=== PATIENT | male | born 1960 | race Two or more races ===

== ENCOUNTER 2024-03-18 23:38 | Inpatient (IN) | payer MEDICAID, OTHER ==
[~2024-03-18] VITALS: Ht 170.2 cm; Wt 72.6 kg
[2024-03-19] VITALS: PULSE 106
[2024-03-19] MEDS: LORazepam 2MG/ML-1ML VIAL IV ONE ×2 (01:15→05:46)
[2024-03-19 02:26] LABS: Hematocrit 31.7 % (41.0-53.0); Mean Corpuscular Volume 81.3 fL (80.0-100.0); Red Blood Cells 3.89 10^6/uL (4.5-5.90)
[2024-03-19 02:35] LABS: Basophils # (auto) 0 10 ^3/uL (0-0.2); Basophils % (auto) 0.3 % (0.0-2.0); Eosinophils # (auto) 0.1 10 ^3/uL (0-0.8); Eosinophils % (auto) 1.5 % (0.0-7.0); Hemoglobin 10.1 g/dL (13.5-17.5); Lymphocytes % (auto) 16.9 % (10.0-50.0); Mean Corpuscular Hemoglobin 25.8 pg (28.0-32.0); Mean Corpuscular Hgb Conc. 31.8 g/dL (32.0-36.0); Monocytes # (auto) 0.7 10 ^3/uL (0-1.3); Monocytes % (auto) 11.1 % (0.0-12.0); Neutrophils # (auto) 4.2 10 ^3/uL (1.6-8.6); Neutrophils % (auto) 70.2 % (37.0-80.0); Nucleated Red Blood Cells % 0.1 %; Platelet Count (auto) 100 10^3/uL (140-450); Red Cell Distribution Width 17.2 % (11.8-14.3)
[2024-03-19 02:49] LABS: Alanine Aminotransferase 16 U/L (7-40); Albumin 2.8 g/dL (3.2-4.8); Alkaline Phosphatase 119 U/L (46-116); Anion Gap 9 (5-15); Aspartate Aminotransferase 29 U/L (13-40); BUN/Creatinine Ratio 7.8 (10.0-20.0); Bilirubin, Total 2.5 mg/dL (0.2-1.0); Blood Urea Nitrogen 6 mg/dL (9-23); Calcium 9.1 mg/dL (8.7-10.4); Carbon Dioxide 20 mmol/L (20-30); Chloride 105 mmol/L (98-107); Glucose 253 mg/dL (74-106); Potassium 4.9 mmol/L (3.5-5.1); Sodium 134 mmol/L (136-145); Total Protein 8.1 g/dL (5.7-8.2)
[2024-03-19 03:12] LABS: Blood Alcohol < 3.0 mg/dL (<10)
[2024-03-19 04:23] LABS: Urine Bacteria FEW /hpf (None Seen); Urine Blood TRACE /uL (Negative); Urine Budding Yeast FEW /hpf (None Seen); Urine Clarity Clear (Clear); Urine Color Yellow (Yellow); Urine Protein, UAD TRACE (Negative); Urine Specific Gravity 1.024 (1.001-1.035); Urine Urobilinogen 3 mg/dL (Negative); Urine WBC 1 /hpf (0 - 3); Urine pH 6.5 (5.0-9.0)
[2024-03-19 04:29] LABS: Amphetamine Screen, Urine Neg (NEGATIVE); Barbiturate Scree,Urine Neg (NEGATIVE); Benzodiazephine Screen, Urine Neg (NEGATIVE); Cocaine Screen, Urine Neg (NEGATIVE); Opiate Scree,Urine Neg (NEGATIVE); Phencyclidine Screen, Urine Neg (NEGATIVE)
[2024-03-19 04:30] LABS: Cannabinoid Screen, Urine Neg (NEGATIVE)
[2024-03-19 07:50] VITALS: PULSE 90; RESP 16; O2SAT 98
[2024-03-19] MEDS ORDERED: NITROGLYCERIN 0.4 MG SL TAB SL PRN (09:00)
[2024-03-19] MEDS ORDERED: ACETAMINOPHEN 325 MG TAB PO PRN (09:00)
[2024-03-19] MEDS: SODIUM CHLORIDE 0.9% 2,000 ML IV ONE (09:00)
[2024-03-19] MEDS ORDERED: MORPHINE SULFATE INJ 2 MG/ml SYRG IV PRN (09:00)
[2024-03-19] MEDS ORDERED: LORazepam 2MG/ML-1ML VIAL IV PRN (09:00)
[2024-03-19] MEDS: LACTULOSE 20Gm/30ML SOLN PO ONE (09:50)
[2024-03-19] MEDS: ENOXAPARIN SOD 40 MG/0.4 ML SYRINGE SC SCH (10:00)
[2024-03-19] MEDS: LACTULOSE 20Gm/30ML SOLN PO SCH (10:00)
[2024-03-19] MEDS: hydrALAZINE HCL 20 MG/ML VL IV PRN (10:42)
[2024-03-19] MEDS: SODIUM CHLORIDE 0.9% 1,000 ML IV SCH (11:00)
[2024-03-19] MEDS ORDERED: FOLIC ACID 1 MG, MAGNESIUM SULF SDV 50% 8 MEQ, MULTIPLE VITAMIN 10 ML, THIAMINE INJ 100... INJ SCH (18:00)
[2024-03-19 19:20] VITALS: PULSE 99; RESP 17; O2SAT 96; O2SAT 99
[2024-03-19] MEDS: FOLIC ACID 1 MG, MAGNESIUM SULF SDV 50% 8 MEQ, MULTIPLE VITAMIN 10 ML, THIAMINE INJ 100... INJ SCH (20:45)
[2024-03-20 07:03] LABS: Basophils # (auto) 0 10 ^3/uL (0-0.2); Basophils % (auto) 0.2 % (0.0-2.0); Eosinophils # (auto) 0.1 10 ^3/uL (0-0.8); Hematocrit 30.5 % (41.0-53.0); Hemoglobin 9.7 g/dL (13.5-17.5); Mean Corpuscular Hgb Conc. 31.9 g/dL (32.0-36.0); Neutrophils # (auto) 4.4 10 ^3/uL (1.6-8.6)
[2024-03-20 07:05] LABS: Eosinophils % (auto) 1.4 % (0.0-7.0); Lymphocytes # (auto) 1.3 10 ^3/uL (0.4-5.4); Lymphocytes % (auto) 18.5 % (10.0-50.0); Mean Corpuscular Hemoglobin 25.7 pg (28.0-32.0); Mean Corpuscular Volume 80.6 fL (80.0-100.0); Monocytes % (auto) 15.2 % (0.0-12.0); Neutrophils % (auto) 64.7 % (37.0-80.0); Platelet Count (auto) 100 10^3/uL (140-450); Red Blood Cells 3.79 10^6/uL (4.5-5.90); Red Cell Distribution Width 17.2 % (11.8-14.3); White Blood Cell 6.8 10^3/uL (4.4-10.8)
[2024-03-20 07:07] LABS: Alanine Aminotransferase 15 U/L (7-40); Albumin 2.8 g/dL (3.2-4.8); Alkaline Phosphatase 113 U/L (46-116); Anion Gap 15 (5-15); Aspartate Aminotransferase 29 U/L (13-40); Bilirubin, Total 2.5 mg/dL (0.2-1.0); Calcium 8.5 mg/dL (8.5-10.1); Carbon Dioxide 15 mmol/L (20-30); Chloride 105 mmol/L (98-107); Glucose 229 mg/dL (74-106); Potassium 3.5 mmol/L (3.5-5.1); Sodium 135 mmol/L (136-145); Total Protein 7.5 g/dL (5.7-8.2)
[2024-03-20 07:08] LABS: BUN/Creatinine Ratio 8.3 (10.0-20.0); Blood Urea Nitrogen < 5 mg/dL (9-23)
[2024-03-20 08:45] VITALS: PULSE 90; RESP 13; O2SAT 98
[2024-03-20 10:41] LABS: Hepatitis B Surface Antigen Negative (Negative)
[2024-03-20 11:01] LABS: Hepatitis A Ab IgM Negative
[2024-03-20 11:03] LABS: Hepatitis B Core IgM Negative; Hepatitis C Antibody Negative (Negative)
[2024-03-20] MEDS ORDERED: DEXTROSE (50%) 50ML SYRG IV PRN (13:45)
[2024-03-20] MEDS: amLODIPine BESYLATE 5 MG TAB PO ONE (14:10)
[2024-03-20 16:43] LABS: Erythrocyte Sedimentation Rate 48 mm/hr (0-20)
[2024-03-20] MEDS: ACCU-CHEK COMFORT CURVE STRIP VI SCH (17:00)
[2024-03-20] MEDS: InsuLIN REG 1unit/0.01ml Soln (100units/ml) SC SCH (17:56)
[2024-03-20 19:30] VITALS: PULSE 92; RESP 10; O2SAT 96
[2024-03-20 21:35] VITALS: PULSE 96; RESP 16; O2SAT 95
[2024-03-21] VITALS (8 sets, daily range): BP systolic 132–151; BP diastolic 64–82; PULSE 78–91; RESP 16–20; TEMP 97.9–99.5; O2SAT 95–97
[2024-03-21 05:01] LABS: Basophils # (auto) 0 10 ^3/uL (0-0.2); Basophils % (auto) 0.4 % (0.0-2.0); Eosinophils # (auto) 0.1 10 ^3/uL (0-0.8); Hematocrit 32.4 % (41.0-53.0); Hemoglobin 9.9 g/dL (13.5-17.5); Lymphocytes # (auto) 1.3 10 ^3/uL (0.4-5.4); Lymphocytes % (auto) 18.1 % (10.0-50.0); Mean Corpuscular Hemoglobin 25.3 pg (28.0-32.0); Mean Corpuscular Hgb Conc. 30.4 g/dL (32.0-36.0); Mean Corpuscular Volume 83.2 fL (80.0-100.0); Monocytes # (auto) 1.3 10 ^3/uL (0-1.3); Neutrophils # (auto) 4.6 10 ^3/uL (1.6-8.6); Neutrophils % (auto) 61.4 % (37.0-80.0); Nucleated Red Blood Cells % 0.1 %; Platelet Count (auto) 104 10^3/uL (140-450); Red Blood Cells 3.89 10^6/uL (4.5-5.90); Red Cell Distribution Width 17.9 % (11.8-14.3); White Blood Cell 7.5 10^3/uL (4.4-10.8)
[2024-03-21 05:02] LABS: Monocytes % (auto) 18.1 % (0.0-12.0)
[2024-03-21 05:17] LABS: Alanine Aminotransferase 16 U/L (7-40); Albumin 2.7 g/dL (3.2-4.8); Alkaline Phosphatase 101 U/L (46-116); Anion Gap 12 (5-15); Aspartate Aminotransferase 35 U/L (13-40); BUN/Creatinine Ratio 8.1 (10.0-20.0); Bilirubin, Total 2.3 mg/dL (0.2-1.0); Blood Urea Nitrogen 5 mg/dL (9-23); Calcium 8.5 mg/dL (8.7-10.4); Carbon Dioxide 15 mmol/L (20-30); Chloride 108 mmol/L (98-107); Glucose 199 mg/dL (74-106); Potassium 3.5 mmol/L (3.5-5.1); Sodium 135 mmol/L (136-145); Total Protein 7.5 g/dL (5.7-8.2)
[2024-03-21] MEDS: amLODIPine BESYLATE 5 MG TAB PO SCH (10:19)
[2024-03-21] MEDS: cefTRIAXone 1GM/50ML D5W 50 ML IV SCH (15:01)
[2024-03-21] MEDS: SODIUM BICARB 50mEq/50ml Vial 50 ML in SOD CHL 0.45% 1,000 ML IV ONE (18:29)
[2024-03-21] MEDS: metFORMIN HYDROCHLORIDE 850 MG TAB PO SCH (18:46)
[2024-03-22 01:00] VITALS: BP 138/53; PULSE 81; RESP 18; TEMP 97.9; O2SAT 97
[2024-03-22 05:00] VITALS: BP 137/60; PULSE 82; RESP 18; TEMP 99; O2SAT 97
[2024-03-22 06:41] LABS: Anion Gap 9 (5-15); Carbon Dioxide 19 mmol/L (20-30); Chloride 108 mmol/L (98-107); Sodium 136 mmol/L (136-145)
[2024-03-22 06:42] LABS: Calcium 8.3 mg/dL (8.7-10.4)
[2024-03-22 06:47] LABS: BUN/Creatinine Ratio 12.5 (10.0-20.0); Blood Urea Nitrogen 8 mg/dL (9-23); Glucose 132 mg/dL (74-106)
[2024-03-22 08:00] VITALS: RESP 18; O2SAT 95
[2024-03-22 09:00] VITALS: BP 138/70; PULSE 84; RESP 20; TEMP 98; O2SAT 94
[2024-03-22] MEDS ORDERED: AMLO1TAB23 PO (09:20)
[2024-03-22] MEDS ORDERED: METF-371 PO (09:20)
[2024-03-22] MEDS: POTASSIUM EFFERVESENT TAB 25 MEQ PO ONE (09:56)
[2024-03-22] MEDS: FLUCONAZOLE 100 MG TAB PO SCH (09:57)
[2024-03-22 10:05] VITALS: BP 136/69
== END 2024-03-22 13:10 | disposition home or self-care (01) | DRG 52 ==
LOC: EDBD 23:38 → ER 23:38 → TELE 03-19 09:11 → TELE-EAST 03-21 08:17 → EAST 03-21 23:37
PROVIDERS: ADMIT Nurse Practitioner Family; ATTEND Nurse Practitioner Acute Care
DX: G93.41 Metabolic encephalopathy (principal); E44.0 Moderate protein-calorie malnutrition; D69.6 Thrombocytopenia, unspecified; K70.9 Alcoholic liver disease, unspecified; I10 Essential (primary) hypertension; F10.10 Alcohol abuse, uncomplicated; E11.65 Type 2 diabetes mellitus with hyperglycemia; Z79.899 Other long term (current) drug therapy; Z68.25 Body mass index [BMI] 25.0-25.9, adult; Y90.0 Blood alcohol level of less than 20 mg/100 ml
CPT/HCPCS: 36415; 70450; 76705; 80048; 80053; 80074; 80307; 80320; 81001; 82140; 82248; 82962; 83036; 84443; 84484; 85025; 85652; 86141; 87040; 87086; 87088; 87186; 93005; 97110; 97116; 97163; 97530; G0378; J1815